=== PATIENT | male | born 1940 ===

== ENCOUNTER → 2016-09-22 | Outpatient (REF) | payer MEDICARE, OTHER | LOC: M LAB REF 17:07 | PROVIDERS: ATTEND Surgery | DX: C44.119 Basal cell carcinoma of skin of left eyelid, including canthus (principal) ==

== ENCOUNTER → 2019-07-30 | Outpatient (REF) | payer MEDICARE, OTHER | LOC: M LAB REF 15:47 | PROVIDERS: ATTEND Otolaryngology | DX: D23.39 Other benign neoplasm of skin of other parts of face (principal) ==

== ENCOUNTER → 2020-01-30 | Outpatient (REF) | payer MEDICARE, OTHER | LOC: M LAB REF 12:54 | PROVIDERS: ATTEND Internal Medicine | DX: M79.10 Myalgia, unspecified site (principal) ==